=== PATIENT | female | born 1980 | race Caucasian/White ===

== ENCOUNTER → 2017-01-30 | Outpatient (CLI) | payer BC ==
[~2017-01-30] MED LIST: NORT50CA PO; PANT40TA PO; PRENTAB26 PO; SUCR5SUS PO
== END | disposition home or self-care (01) ==
LOC: C.PAPS 10:14
PROVIDERS: ATTEND Obstetrics & Gynecology
DX: R87.610 Atypical squamous cells of undetermined significance on cytologic smear of cervix (ASC-US) (principal)

== ENCOUNTER 2017-02-07 01:01 | Emergency (ER) | payer BC ==
[~2017-02-07] VITALS: Ht 162.6 cm; Wt 66.2 kg
[~2017-02-07 01:01] MED LIST changes: -NORT50CA PO; -PANT40TA PO; -SUCR5SUS PO
[2017-02-07 01:08] VITALS: TEMP 36.5; Ht 162.6 cm; Wt 66.2 kg
[2017-02-07 01:10] VITALS: O2SAT 100
[2017-02-07] MEDS ORDERED: ALUMINUM/MAGNESIUM SUSP 30 ML UDC ONE (01:23)
[2017-02-07] MEDS ORDERED: LIDOCAINE HCL 2% VISC SOLN 20 ML UDC ONE (01:23)
[2017-02-07] MEDS ORDERED: SODIUM CHLORIDE 0.9% 1000ML 1,000 ML IV STA (01:25)
[2017-02-07] MEDS ORDERED: PANTOprazole INJ 40 MG in SYRINGE 0 ML IV ONE (01:30)
[2017-02-07 01:34] LABS: BASO % 0.4 %; BASO ABS # 0.03 K/uL (0-0.2); COMPLETE YES; EOS % 2.9 %; HEMATOCRIT 44.8 % (37-47); IG% 0.3 %; LYMPH % 32.3 %; LYMPH ABS # 2.45 K/uL (1.2-3.4); MEAN CELL VOLUME 85.5 fL (80-100); MEAN CORPUSCULAR HEMOGLOBIN 28.1 pg (25-34); MEAN CORPUSCULAR HGB CONC 32.8 g/dl (32-36); MEAN PLATELET VOLUME 10.7 fL (7.4-10.4); MONO % 7.2 %; NEUT % 56.9 %; PLATELET COUNT 213 K/uL (130-400); RED BLOOD COUNT 5.24 M/uL (4.2-5.4); WHITE BLOOD COUNT 7.59 K/uL (4.8-10.8)
[2017-02-07 01:44] LABS: PARTIAL THROMBOPLASTIN RATIO 1.1; PROTHROMBIN TIME (PATIENT) 10.5 SECONDS (9.0-12.0)
[2017-02-07 02:05] LABS: BUN/CREATININE RATIO 21.3 (10-20); CALCIUM 9.1 mg/dl (8.5-10.1); CREATININE 0.9 mg/dl (0.60-1.20); MAGNESIUM 2.3 mg/dl (1.8-2.4); POTASSIUM 3.6 mmol/L (3.5-5.1)
[2017-02-07 02:11] LABS: ALB/GLOB RATIO 1.4 (0.9-2); CKMB/CK RATIO 0.9 (0-3.0)
[2017-02-07] MEDS ORDERED: SUCRALFATE 1 GM/10 ML UDC PO ONE (02:15)
[2017-02-07] MEDS ORDERED: NORT50CA PO (02:17)
[2017-02-07] MEDS ORDERED: PANT40TA PO (04:08)
[2017-02-07] MEDS ORDERED: SUCR5SUS PO (04:08)
--- NOTE | 2017-02-07 04:09 | EMERGENCY ROOM VISIT NOTE ---
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 pt with pain that started in her upper abdomen and now has migrated to her mid upper sternum. pt describes pain as burning. rates 5/10 but was worse previously. pain worse with lying down. hx reflux, was to have scope but has not had one yet. nausea earlier with intense pain. nausea has subsided with decrease in pain. 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 History of Present Illness The patient is a 36 year old female who presents to the Emergency Department by private vehicle with her for evaluation of a burning sensation in her chest and abdomen. The patient reports that her symptoms initially started in the epigastrium. She is since developed pain in her chest which is worse with laying flat. 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 She denies any new or spicy foods this evening. She is tried nothing for her symptoms to this point. The patient rates her current discomfort as a 5/10. Patient denies any pleuritic pain, palpitations, short of breath, nausea, vomiting, water brash, fevers, chills, recent illness. She denies any history of heart disease. She reports no significant family history of heart disease. Review of Systems A complete 10-point Review of Systems was discussed with the patient, with pertinent positives and negatives listed in the History of Present Illness. All remaining Review of Systems questions can be considered negative unless otherwise specified. Past Medical/Surgical History Medical Problems: (1) HEADACHE (2) VENTRICULAR SEPT DEFECT Family History Cardiovascular disease Social History Smoking Status: Never Smoker Smokeless Tobacco Use: No Alcohol Use: none Drug Use: none Marital Status: Housing Status: lives with family Occupation Status: employed Current/Historical Medications Scheduled Nortriptyline (Pamelor), 50 MG PO QPM Pantoprazole (Protonix), 40 MG PO DAILY Sucralfate (Carafate), 1 GM PO QID Allergies Coded Allergies: Aspirin (Verified Allergy, Mild, vomiting, 09/30/15) Sulfa Drugs (Verified Allergy, Mild, 09/30/15) Physical Exam Vital Signs Date Time Temp Pulse Resp B/P Pulse Ox O2 Delivery O2 Flow Rate FiO2 02/07/17 04:18 72 21 102/67 97 02/07/17 04:00 72 21 102/67 97 Room Air 02/07/17 03:30 84 18 102/70 99 Room Air 02/07/17 02:18 84 18 115/69 99 Room Air 02/07/17 01:23 96 02/07/17 01:11 100 Room Air 02/07/17 01:10 100 Room Air 02/07/17 01:08 36.5 97 16 130/89 100 Room Air Pain Rating (0-10): 5 Physical Exam VITAL SIGNS - Vital signs and nursing notes were reviewed. GENERAL - 36-year-old female appearing her stated age who is in no acute distress. Communicates well with provider and answers questions appropriately. LUNGS - Chest wall symmetric without accessory muscle use, intercostals retractions, or central cyanosis. Normal vesicular breath sounds CTA B/L. No wheezes, rales, or rhonchi appreciated. CARDIAC - RRR with S1/S2. No murmur, rubs, or gallops appreciated. No reproducible tenderness to palpation appreciated over the anterior chest wall. ABDOMEN - Abdominal contour flat and without pulsations or visible masses. BS normoactive all four quadrants. No tenderness, palpable masses, hepatosplenomegaly, or ascites noted. EXTREMITIES - No clubbing or peripheral cyanosis. No pretibial edema present. + 3/5 radial and dorsalis pedis pulses palpated throughout. +5/5 strength noted in UE/LE bilaterally. NEUROLOGIC - Cranial nerves II through XII grossly intact. Sensory intact to light touch throughout. PSYCH - A&Ox3 and cooperates fully with examiner. Pt is very pleasant and interacts well with examiner. Medical Decision & Procedures ER Provider Diagnostic Interpretation: Radiological imaging and reports were reviewed by myself. Radiologist's Interpretation as follows: SINGLE VIEW CHEST CLINICAL HISTORY: Atypical chest pain. FINDINGS: An AP, portable, upright chest radiograph is compared to study dated 10/08/2006. The cardiomediastinal silhouette is unremarkable. The lungs and pleural spaces are clear. No pneumothorax is seen. The bony thorax is grossly intact. IMPRESSION: No active disease in the chest. Laboratory Results 02/07/17 01:15 Red Blood Count 5.24, Mean Corpuscular Volume 85.5, Mean Corpuscular Hemoglobin 28.1, Mean Corpuscular Hemoglobin Concent 32.8, Mean Platelet Volume 10.7, Neutrophils (%) (Auto) 56.9, Lymphocytes (%) (Auto) 32.3, Monocytes (%) (Auto) 7.2, Eosinophils (%) (Auto) 2.9, Basophils (%) (Auto) 0.4, Neutrophils # (Auto) 4.32, Lymphocytes # (Auto) 2.45, Monocytes # (Auto) 0.55, Eosinophils # (Auto) 0.22, Basophils # (Auto) 0.03 02/07/17 01:15 Test 02/07/17 01:15 02/07/17 01:25 02/07/17 03:34 White Blood Count 7.59 K/uL (4.8-10.8) Red Blood Count 5.24 M/uL (4.2-5.4) Hemoglobin 14.7 g/dL (12.0-16.0) Hematocrit 44.8 % (37-47) Mean Corpuscular Volume 85.5 fL (80-100) Mean Corpuscular Hemoglobin 28.1 pg (25-34) Mean Corpuscular Hemoglobin Concent 32.8 g/dl (32-36) Platelet Count 213 K/uL (130-400) Mean Platelet Volume 10.7 fL (7.4-10.4) Neutrophils (%) (Auto) 56.9 % Lymphocytes (%) (Auto) 32.3 % Monocytes (%) (Auto) 7.2 % Eosinophils (%) (Auto) 2.9 % Basophils (%) (Auto) 0.4 % Neutrophils # (Auto) 4.32 K/uL (1.4-6.5) Lymphocytes # (Auto) 2.45 K/uL (1.2-3.4) Monocytes # (Auto) 0.55 K/uL (0.11-0.59) Eosinophils # (Auto) 0.22 K/uL (0-0.5) Basophils # (Auto) 0.03 K/uL (0-0.2) RDW Standard Deviation 44.7 fL (36.4-46.3) RDW Coefficient of Variation 14.3 % (11.5-14.5) Immature Granulocyte % (Auto) 0.3 % Immature Granulocyte # (Auto) 0.02 K/uL (0.00-0.02) Prothrombin Time 10.5 SECONDS (9.0-12.0) Prothromb Time International Ratio 1.0 (0.9-1.1) Activated Partial Thromboplast Time 29.0 SECONDS (21.0-31.0) Partial Thromboplastin Ratio 1.1 Anion Gap 7.0 mmol/L (3-11) Est Creatinine Clear Calc Drug Dose 80.9 ml/min Estimated GFR () 95.3 Estimated GFR (Non- 82.3 BUN/Creatinine Ratio 21.3 (10-20) Calcium Level 9.1 mg/dl (8.5-10.1) Magnesium Level 2.3 mg/dl (1.8-2.4) Total Bilirubin 0.4 mg/dl (0.2-1) Aspartate Amino Transf (AST/SGOT) 10 U/L (15-37) Alanine Aminotransferase (ALT/SGPT) 26 U/L (12-78) Alkaline Phosphatase 95 U/L (45-117) Total Creatine Kinase 58 U/L (26-192) Creatine Kinase MB 0.5 ng/ml (0.5-3.6) Creatine Kinase MB Ratio 0.9 (0-3.0) Total Protein 7.9 gm/dl (6.4-8.2) Albumin 4.6 gm/dl (3.4-5.0) Globulin 3.3 gm/dl (2.5-4.0) Albumin/Globulin Ratio 1.4 (0.9-2) Lipase 228 U/L (73-393) Urine Test NEG (NEG) Bedside Troponin I 0.000 ng/ml (0-0.045) Medications Administered Medications (Trade) Dose Ordered Sig/Pura Route Start Time Stop Time Status Last Admin Dose Admin Al Hydroxide/Mg Hydroxide (Maalox Susp) 30 ml STK-MED ONCE .ROUTE 02/07/17 01:23 02/07/17 01:24 DC 02/07/17 01:20 30 ML Lidocaine HCl 20 ml 20 ml STK-MED ONCE .ROUTE 02/07/17 01:23 02/07/17 01:24 DC 02/07/17 01:20 20 ML Pantoprazole Sodium 40 mg/ Syringe 10 ml @ 5 mls/min NOW ONCE IV 02/07/17 01:30 02/07/17 01:31 DC 02/07/17 01:39 5 MLS/MIN Sodium Chloride (Nss 1000ml) 1,000 ml @ 125 mls/hr Q8H STAT IV 02/07/17 01:25 02/07/17 04:35 DC 02/07/17 01:39 125 MLS/HR Sucralfate (Carafate Susp) 1 gm NOW ONCE PO 02/07/17 02:15 02/07/17 02:16 DC 02/07/17 02:26 1 GM Procedure Patient was placed on the messenger floorperson and monitored throughout the entire extent of their stay. In addition, the patient's pulse oximetry was monitored throughout the entire stay. Any abnormalities or aberrancies were addressed appropriately. ECG Indication: chest pain Rate (beats per minute): 101 Rhythm: sinus tachycardia Findings: no acute ischemic change, no ectopy Comparison ECG Date: no prior available ED Course Patient was seen and evaluated by myself. Labs were drawn, saline lock in place. EKG and chest x-rays were obtained. Patient was treated with a GI cocktail and IV Protonix. She was hydrated with normal saline at rate of 125 mL per hour. Laboratory results demonstrate no acute leukocytosis, worrisome anemia, or bandemia. The patient has no significant electrolyte abnormalities. Cardiac enzymes are negative. Troponin is negative. The patient was reevaluated and reports feeling somewhat better, but reports that her burning is now returning. The patient was treated with oral Carafate. Repeat troponin was obtained. Repeat troponin was negative. The patient reports complete resolve of symptoms at this point. The patient was educated on today's findings. The patient was provided a prescription for Protonix as well as Carafate. She was instructed to follow-up with her recordist for her scheduled upper endoscopy. She was educated on worrisome symptoms for return visit to the emergency department. Patient discharged home afebrile and in good condition. Medical Decision Given the patient's presentation and stated complaints, I did elect to perform the above-mentioned workup. The patient presents complaining of epigastric discomfort with radiation into the chest. Her symptoms are worse with laying flat. Cardiac evaluation is otherwise unremarkable. The patient had negative troponin 2. The patient's exam and symptoms are more consistent with acute gastritis. She responded well to GI cocktail and Carafate. She will follow-up with her recordist as scheduled. She will return the emergency department for any changing or worsening symptoms. Patient discharged home in good condition. In the evaluation and treatment of this patient, the following differential diagnoses were considered: OR, ASC, Dysrhythmia, Angina, Mediastinitis, GERD, Esophagitis, PE, Pneumonia, Bronchitis, Costochondritis, Rib Fracture, Zoster. Impression Primary Impression: GERD with esophagitis Departure Information Dispostion Home / Self-Care Condition GOOD Prescriptions Pantoprazole (Protonix) 40 Mg Tab 40 MG PO DAILY for 14 Days, #14 TAB Prov: Michael Cano PA-C 02/07/17 Sucralfate (Carafate) 1 Gm/10 Ml Susp 1 GM PO QID for 14 Days, #560 ML Prov: Michael Cano PA-C 02/07/17 Referrals Riaz Yu M.D. (PCP) Patient Instructions ED GERD, Esophagitis, [facility] Additional Instructions You have been treated in the Emergency Department for your suspected Gastroesophageal Reflux Disease or GERD for short. Laboratory results and Imaging studies have ruled out any other emergent or surgical gastrointestinal issues. You should take Protonix as prescribed. This is a drug that will help with any possible indigestion that might be contributing to your pain/discomfort. You should take this medicine EVERY day for the best results. This medicine is not intended to be used for immediate relief of symptoms, but rather to reduce the risk of recurrence of symptoms. Please use the Carafate as prescribed. You can consider using TUMS/Maalox for relief of any indigestion that you might be experiencing. This drug is fast acting and can be used for immediate relief of your indigestion symptoms. You should eat a bland diet for the next few days. Some suggested bland dietary foods: Bananas, Rice, Applesauce, [place], or Boiled Chicken. These foods are easy to digest and help you to recover at a faster rate. 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 For pain control, you can use the following [id number] medicines (if >12 yo): - Regular strength (325mg/tab) Tylenol (acetaminophen) 2 tabs every 4-6 hours as needed. Do not exceed 12 tablets in a 24 hour period. Avoid taking more than 4 grams (4000 mg) of Tylenol per day. This includes any other sources of acetaminophen you may take on a regular basis. - Regular strength (200 mg/tab) Advil (ibuprofen) 1-2 tabs every 4-6 hours as needed. Do not exceed a dose of 3200 mg per day. You should schedule a follow-up appointment with your Primary Care Provider in 2 -3 days for further evaluation from today's Emergency Department visit. Your Primary Care Provider should be involved in the addition of any new medications. Your Primary Care Provider may also refer you to a Tree Cutter, a doctor who specializes in the digestive system. Return to the Emergency Department if your current symptoms worsen despite treatment course outlined above, or if you develop any of the following symptoms : worsening abdominal pain, associated chest or back pain, worsening nausea/ vomiting, dizziness, shortness of breath, blood in your vomit, or fainting.
[2017-02-07 04:18] VITALS: BP 102/67; PULSE 72; O2SAT 97
--- NOTE | 2017-02-07 07:59 | DIAGNOSTIC IMAGING REPORT ---
SINGLE VIEW CHEST CLINICAL HISTORY: Atypical chest pain. FINDINGS: An AP, portable, upright chest radiograph is compared to study dated 10/08/2006. The cardiomediastinal silhouette is unremarkable. The lungs and pleural spaces are clear. No pneumothorax is seen. The bony thorax is grossly intact. IMPRESSION: No active disease in the chest. Electronically signed by: Jerod Diaz M.D. 02/07/2017 7:57 AM Dictated Date/Time: 02/07/2017 7:57 AM
== END 2017-02-07 04:19 | disposition home or self-care (01) ==
LOC: C.EDB 01:02 → C.EDA 04:19
DX: K21.0 Gastro-esophageal reflux disease with esophagitis (principal); Q21.0 Ventricular septal defect; Z82.49 Family history of ischemic heart disease and other diseases of the circulatory system; Z79.899 Other long term (current) drug therapy

== ENCOUNTER → 2017-03-12 | Outpatient (CLI) | payer BC ==
[~2017-03-12] MED LIST changes: +NORT50CA PO; -PRENTAB26 PO
== END | disposition home or self-care (01) ==
LOC: C.PATHSPEC 15:51
PROVIDERS: ATTEND Obstetrics & Gynecology
DX: R87.612 Low grade squamous intraepithelial lesion on cytologic smear of cervix (LGSIL) (principal)

== ENCOUNTER → 2017-10-15 | Outpatient (CLI) | payer BC | END | disposition home or self-care (01) | LOC: C.PAPS 07:43 | PROVIDERS: ATTEND Obstetrics & Gynecology | DX: N87.0 Mild cervical dysplasia (principal); R87.610 Atypical squamous cells of undetermined significance on cytologic smear of cervix (ASC-US) ==